=== PATIENT | male | born 1975 | race Caucasian/White ===

== ENCOUNTER 2023-12-14 17:16 | Emergency (ER) | payer BC, SELFPAY ==
[2023-12-14 17:18] VITALS: BP 156/90
[2023-12-14] MEDS: KEFLEX 500 MG PO (17:52)
--- NOTE | 2023-12-14 22:50 | ED.SKININJ ---
HPI-Injury
General
Chief Complaint: Skin Problem
Source: patient
Exam Limitations: none
Time Seen by Provider: 12/14/23 17:29
Nursing documentation reviewed up to this point in time: agreed with
History of Present Illness-Injury
Is this injury a work related problem?: No
Is pt an associate of [facility]?: No
Initial Injury comments:
Patient to ED wtih complaint of small skin abscesll to left ant. chest. Symptoms started approx 4 days ago. He was able to squeeze out a small amt of pus. States site is more painful and red. Denies fever/chills. Brought slef to ED for eval.
Past History
Past History
ED Past Medical History: None
Social History
Living: with family
Review of Systems
Review of Systems
Allergies reviewed?: Yes
All Other Systems: ROS reviewed and negative except as documented in HPI and ROS
Constitutional: Reports no symptoms
Musculoskeletal: Reports no symptoms
Skin: Reports other (skin abscess to left ant. chest)
Neurological: Reports no symptoms
Psychiatric: Reports no symptoms
Skin Exam
Abscess
Left Anterior Chest:
Description of abscess: firm
Surrounding skin:: inflammed at abscess site
Phy Exam
General Physical Exam
General Presentation: well appearing and no apparent distress
General age: appears stated age
General Skin: warm and dry
General Habitus: normal
Musculoskeletal Exam
Musculoskeletal Exam: full ROM
Skin Exam
Skin Exam: normal color, warm/dry, no rash and no petechia
Psychiatric Exam
Psychiatric Exam: normal mood/affect
Course
Orders/Labs/Results
Orders:
Orders
12/14/23 17:43
Cephalexin Monohydrate [Keflex] 500 mg PO NOW STA
12/14/23 17:56
Wound Culture [Wound/Abscess/Other Culture] Urgent
ANGELICA Source: Abscess
Specimen Description:
Date Specimen was Collected: 12/14/23
Time Specimen was Collected: 17:51
Vital Signs
Initial and Last Documented VS:
Initial Vital Signs
Temp Pulse Resp BP Pulse Ox
98.4 F 91 18 156/90 99
12/14/23 17:18 12/14/23 17:18 12/14/23 17:18 12/14/23 17:18 12/14/23 17:18
Last Documented Vital Signs
Temp Pulse Resp BP Pulse Ox
98.4 F 91 18 156/90 99
12/14/23 17:18 12/14/23 17:18 12/14/23 17:18 12/14/23 17:18 12/14/23 17:18
Procedures
Incision/Drainage/Joint Aspiration
Left Anterior Chest:
Anethesia: 1% Lidocaine with Epi
Preparation: cleaned with Betadine
Type of procedure: incise and drain
Nature of site: abscess
Description of abscess: less than 3cm
How much fluid was obtained?: scant amount
Fluid description: cloudy
Treatment: left open for drainage and antibiotics started
*Critical Care Note
Total Time (30-74mins, 75-104mins- exclusive of procedures): Not Applicable
ED Attending Note
-
Portions of this chart may have been created with voice recognition software.� Occasional wrong word or��sound alike� substitutions may have occurred due to the inherent limitations of voice recognition software.
Discharge Plan
Departure
Patient Disposition: Home (Routine Discharge)
Date of Disposition: 12/14/23
Time of Disposition: 17:43
Patient with high blood pressure during this ER visit?: No
Condition: Good
Covid-19: Not Applicable
Discharge Problem:
Abscess of skin
Instructions: Abscess Incision and Drainage (DC), Skin Abscess
Prescriptions:
New
cephalexin 500 mg capsule
500 mg PO Q6H 10 Days Qty: 40 0RF
Referrals:
Donte Rivera MD [Active] -
Activity Restrictions/Additional Instructions:
Warm compresses to site 15-20 minutes at a time, 4-5 times daily. Return to the emergency department immediately for fever/chills, increasing pain, redness, swelling to site, or for any further concerns.
Interventions
Interventions:
*Risk Screen - Suicide Last Done: 12/14/23 17:22
*General Assessment Last Done: 12/14/23 17:22
*Neglect/Abuse Screening Last Done: 12/14/23 17:22
ED- Fall Risk Assessment Last Done: 12/14/23 17:59
*Nursing Disposition Last Done: 12/14/23 17:59
ED-Skin Assessment Last Done: 12/14/23 17:59
Discharge Date and Time
Discharge Date/Time: 12/14/23 18:00
Print Language: [id number]
== END 2023-12-14 18:00 | disposition home or self-care (01) ==
LOC: EMR 17:16
PROVIDERS: EMERGENCY PHYSICIAN Emergency Medicine; FAMILY PHYSICIAN Family Medicine
DX: L02.213 Cutaneous abscess of chest wall (principal)
CPT/HCPCS: 99282; 10060; 87070; 87205

== ENCOUNTER → 2024-05-11 12:15 | Outpatient (REF) | payer BC, OTHER, SELFPAY | LOC: CLAB 12:15 | PROVIDERS: ATTENDING PHYSICIAN Surgery | DX: N61.1 Abscess of the breast and nipple (principal); N63.42 Unspecified lump in left breast, subareolar | CPT/HCPCS: 88305 ==